=== PATIENT | female | born 1935 | race Caucasian/White ===

== ENCOUNTER → 2016-11-19 | Outpatient (CLI) | payer OTHER ==
[~2016-11-19] MED LIST: AVAPRO300 MG PO; CALTRATE 600 +1 EAC1 PO; DAILY VALUE1 EACH PO; DICLOFENAC POTA50 MG PO; DIGOXIN125 MCG PO; DOCUSATE SODIU100 MG PO; DURAGESIC50 MCG TD; FISH OIL PO; FISH OIL300 MG PO; FLEXERIL10 MG PO; GLUCOSAMINE &1 EAC1 PO; LIPITOR20 MG PO; LOZOL2.5 MG PO; NEURONTIN300 MG PO; PREVACID30 MG PO; RESTASIS 01 DROP/0.4 BOTH EYES; TOPROL XL50 MG PO
== END | disposition home or self-care (01) ==
LOC: NUC 08:45
DX: K31.84 Gastroparesis (principal); R11.10 Vomiting, unspecified
CPT/HCPCS: 78264; A9541

== ENCOUNTER 2017-06-18 15:02 | Inpatient (IN) | payer OTHER ==
[~2017-06-18] VITALS: Ht 147.3 cm; Wt 68.2 kg
[~2017-06-18 15:02] MED LIST changes: +AVAPRO150 MG PO; +FISH OIL 1,0001 EAC7 PO; -FISH OIL PO
[2017-06-18 16:01] LABS: EOSINOPHIL (%) 0.2 % (0-5); HEMATOCRIT 33.2 % (36.0-46.0); IMMATURE GRANULOCYTE (%) 0.8 % (0.0-0.7); IMMATURE GRANULOCYTE COUNT 0.1 K/uL; LYMPHOCYTE COUNT 0.6 K/uL (1.0-2.8); MCH 29.2 PG (29.0-34.0); MCV 85.8 FL (83-99); MEAN PLAT.VOLUME 8.3 uM^3 (9.5-12.4); MONOCYTE (%) 7.8 % (3-12); MONOCYTE COUNT 1.3 K/uL (0-0.8); NEUTROPHIL (%) 87.3 % (45-76); PLATELET COUNT 382 K/uL (156-360); RBC DIS.WIDTH-CV 12.6 % (11.8-14.6); RBC DIS.WIDTH-SD 39.5 % (39-53); RED BLOOD COUNT 3.87 M/uL (3.80-5.20); WHITE BLOOD COUNT 17.2 K/uL (4.1-10.2)
[2017-06-18 16:11] LABS: CHLORIDE 94 mEq/L (99-109); SODIUM 135 mEq/L (136-147)
[2017-06-18 16:13] LABS: GLUCOSE 119 mg/dL (70-99)
[2017-06-18 16:14] LABS: ANION GAP 11 MEQ/L (2-14)
[2017-06-18 16:16] LABS: GFR ESTIMATE (CALCULATED) 42 mL/min/
[2017-06-18 16:17] LABS: UREA NITROGEN (BUN) 27 mg/dL (9-23)
[2017-06-18 16:23] LABS: TROP-I INTERPRETATION NEGATIVE; TROPONIN-I 0.03 ng/mL (0.0-0.30)
[2017-06-18] MEDS ORDERED: NYSTATIN15 GM TP (19:10)
[2017-06-18] MEDS ORDERED: PROTONIX40 MG PO (19:11)
[2017-06-18] MEDS ORDERED: COLACE100 MG PO (19:14)
[2017-06-18 21:47] VITALS: BP 112/53
[2017-06-19] VITALS (7 sets, daily range): BP systolic 97–118; BP diastolic 49–61
[2017-06-19 02:09] LABS: TROP-I INTERPRETATION NEGATIVE; TROPONIN-I 0.01 ng/mL (0.0-0.30)
[2017-06-19 05:50] LABS: HEMATOCRIT 30.5 % (36.0-46.0); MCH 28.4 PG (29.0-34.0); MCHC 33.4 G/DL (30.0-36.0); MEAN PLAT.VOLUME 8.5 uM^3 (9.5-12.4); PLATELET COUNT 404 K/uL (156-360); RBC DIS.WIDTH-CV 12.8 % (11.8-14.6); RBC DIS.WIDTH-SD 39.7 % (39-53); RED BLOOD COUNT 3.59 M/uL (3.80-5.20)
[2017-06-19 06:17] LABS: ANION GAP 10 MEQ/L (2-14); CHLORIDE 95 MEQ/L (99-109); GFR ESTIMATE (CALCULATED) 51 mL/min/; POTASSIUM 3.5 MEQ/L (3.7-5.4); SAMPLE HEMOLYSIS CHECK 0; SAMPLE ICTERIC CHECK 0; SAMPLE LIPEMIA CHECK 0; SODIUM 132 MEQ/L (136-147); UREA NITROGEN (BUN) 30 mg/dL (9-23)
[2017-06-19 06:23] LABS: TROP-I INTERPRETATION NEGATIVE; TROPONIN-I < 0.01 ng/mL (0.0-0.30)
[2017-06-19 06:40] LABS: GLUCOSE 89 mg/dL (70-99)
[2017-06-19 12:44] LABS: ALKALINE PHOSPHATASE 130 IU/L (3-129); ANION GAP 9 MEQ/L (2-14); CHLORIDE 94 MEQ/L (99-109); GFR ESTIMATE (CALCULATED) 51 mL/min/; POTASSIUM 3.5 MEQ/L (3.7-5.4); SAMPLE HEMOLYSIS CHECK 0; SAMPLE ICTERIC CHECK 0; SAMPLE LIPEMIA CHECK 0; SODIUM 132 MEQ/L (136-147); TOTAL BILIRUBIN 0.5 MG/DL (0.0-1.0); UREA NITROGEN (BUN) 27 mg/dL (9-23)
[2017-06-19 12:45] LABS: GLUCOSE 119 mg/dL (70-99)
[2017-06-19 17:51] LABS: BILIRUBIN NEGATIVE; BLOOD NEGATIVE; COLOR YELLOW ((YELLOW)); GLUCOSE (STRIP) NEGATIVE; KETONES NEGATIVE; LEUKOCYTES NEGATIVE; NITRITE NEGATIVE; PROTEIN (STRIP) NEGATIVE; SPECIFIC GRAVITY 1.018 (1.000-1.030)
[2017-06-19 18:13] LABS: ADD MIUA? NO; UCUL ADDED? NO
[2017-06-19 20:23] LABS: EOSINOPHIL (%) 0.8 % (0-5); EOSINOPHIL COUNT 0.1 K/uL (0-0.3); HEMATOCRIT 30.2 % (36.0-46.0); IMMATURE GRANULOCYTE (%) 0.6 % (0.0-0.7); IMMATURE GRANULOCYTE COUNT 0.1 K/uL; INSTRUMENT ABS NEUTROPHIL CT 13.3 K/uL; LYMPHOCYTE COUNT 0.7 K/uL (1.0-2.8); MCH 29.4 PG (29.0-34.0); MCHC 34.1 G/DL (30.0-36.0); MCV 86.3 FL (83-99); MEAN PLAT.VOLUME 8.2 uM^3 (9.5-12.4); MONOCYTE (%) 8.7 % (3-12); MONOCYTE COUNT 1.4 K/uL (0-0.8); NEUTROPHIL (%) 85.3 % (45-76); NEUTROPHIL COUNT 13.3 K/uL (1.8-6.4); PLATELET COUNT 385 K/uL (156-360); RBC DIS.WIDTH-CV 13.2 % (11.8-14.6); RBC DIS.WIDTH-SD 41.4 % (39-53); WHITE BLOOD COUNT 15.6 K/uL (4.1-10.2)
[2017-06-19 20:33] LABS: ANION GAP 8 MEQ/L (2-14); CHLORIDE 96 MEQ/L (99-109); MAGNESIUM 1.5 mg/dl (1.3-2.7); POTASSIUM 3.9 MEQ/L (3.7-5.4); SAMPLE HEMOLYSIS CHECK 0; SAMPLE ICTERIC CHECK 0; SAMPLE LIPEMIA CHECK 0; SODIUM 130 MEQ/L (136-147); TOTAL BILIRUBIN 0.4 MG/DL (0.0-1.0)
[2017-06-19 20:34] LABS: INTER. NORMALIZED RATIO 1.6; PROTHROMBIN TIME 17.7 SEC (10.2-12.9)
[2017-06-19 20:39] LABS: ALKALINE PHOSPHATASE 126 IU/L (3-129); GFR ESTIMATE (CALCULATED) 46 mL/min/; GLUCOSE 128 mg/dL (70-99); UREA NITROGEN (BUN) 28 mg/dL (9-23)
[2017-06-19 20:50] LABS: ERTH.SED.RATE 82 MM/HR (0-30)
[2017-06-20 00:02] VITALS: BP 98/56
[2017-06-20 04:29] VITALS: BP 111/62
[2017-06-20 07:00] VITALS: BP 110/63
[2017-06-20 11:40] VITALS: BP 107/60
[2017-06-20 15:10] VITALS: BP 104/61
[2017-06-20 19:51] VITALS: BP 104/61
[2017-06-21 00:29] VITALS: BP 101/60
[2017-06-21 03:53] VITALS: BP 112/61
[2017-06-21 07:10] VITALS: BP 104/60
[2017-06-21 11:50] VITALS: BP 113/74
[2017-06-21 15:05] VITALS: BP 110/71
[2017-06-21 21:00] VITALS: BP 111/64
[2017-06-22 01:00] VITALS: BP 120/74
[2017-06-22 04:56] VITALS: BP 112/74
[2017-06-22 05:56] LABS: EOSINOPHIL (%) 2.6 % (0-5); EOSINOPHIL COUNT 0.3 K/uL (0-0.3); HEMATOCRIT 30.2 % (36.0-46.0); IMMATURE GRANULOCYTE (%) 0.8 % (0.0-0.7); IMMATURE GRANULOCYTE COUNT 0.1 K/uL; INSTRUMENT ABS NEUTROPHIL CT 9.7 K/uL; MCH 28.7 PG (29.0-34.0); MCHC 33.4 G/DL (30.0-36.0); MCV 85.8 FL (83-99); MEAN PLAT.VOLUME 8.3 uM^3 (9.5-12.4); MONOCYTE (%) 10.7 % (3-12); MONOCYTE COUNT 1.3 K/uL (0-0.8); NEUTROPHIL (%) 77.5 % (45-76); NEUTROPHIL COUNT 9.7 K/uL (1.8-6.4); PLATELET COUNT 478 K/uL (156-360); RBC DIS.WIDTH-CV 13.2 % (11.8-14.6); RBC DIS.WIDTH-SD 41.2 % (39-53); RED BLOOD COUNT 3.52 M/uL (3.80-5.20); WHITE BLOOD COUNT 12.5 K/uL (4.1-10.2)
[2017-06-22 06:24] LABS: ANION GAP 9 MEQ/L (2-14); CHLORIDE 90 MEQ/L (99-109); GFR ESTIMATE (CALCULATED) > 59 mL/min/; GLUCOSE 105 mg/dL (70-99); POTASSIUM 3.7 MEQ/L (3.7-5.4); SAMPLE HEMOLYSIS CHECK 0; SAMPLE ICTERIC CHECK 0; SAMPLE LIPEMIA CHECK 0; SODIUM 131 MEQ/L (136-147); UREA NITROGEN (BUN) 14 mg/dL (9-23)
[2017-06-22 08:15] VITALS: BP 138/67
[2017-06-22 12:06] VITALS: BP 136/88
[2017-06-22 14:11] LABS: TYPE OF FLUID THORACENTESIS
[2017-06-22 14:59] LABS: BODY FLUID EOSINOPHILS 0 % (0-25); BODY FLUID RBC'S 36000 /MM^3 (0-100); BODY FLUID WBC'S 2463 /MM^3 (0-500); MONONUCLEAR WBC'S 11 %; POLYNUCLEAR WBC'S 89 % (0-25)
[2017-06-22 15:04] LABS: BODY FLUID LDH 2710 IU/L
[2017-06-22 15:21] LABS: BODY FLUID PROTEIN < 3.0 G/DL
[2017-06-22 16:36] VITALS: BP 105/73
[2017-06-22 19:31] VITALS: BP 110/56
[2017-06-23] VITALS (7 sets, daily range): BP systolic 118–133; BP diastolic 56–78
[2017-06-24 04:00] VITALS: BP 132/78
[2017-06-24 05:39] LABS: BASOPHIL COUNT 0.1 K/uL (0-0.1); EOSINOPHIL (%) 4.3 % (0-5); EOSINOPHIL COUNT 0.4 K/uL (0-0.3); HEMATOCRIT 28.9 % (36.0-46.0); IMMATURE GRANULOCYTE (%) 1.1 % (0.0-0.7); IMMATURE GRANULOCYTE COUNT 0.1 K/uL; INSTRUMENT ABS NEUTROPHIL CT 6.7 K/uL; LYMPHOCYTE COUNT 0.9 K/uL (1.0-2.8); MCH 28.3 PG (29.0-34.0); MCHC 32.9 G/DL (30.0-36.0); MEAN PLAT.VOLUME 8.3 uM^3 (9.5-12.4); MONOCYTE (%) 13.4 % (3-12); MONOCYTE COUNT 1.3 K/uL (0-0.8); NEUTROPHIL (%) 71.6 % (45-76); NEUTROPHIL COUNT 6.7 K/uL (1.8-6.4); PLATELET COUNT 453 K/uL (156-360); RBC DIS.WIDTH-CV 13.3 % (11.8-14.6); RBC DIS.WIDTH-SD 41.6 % (39-53); RED BLOOD COUNT 3.36 M/uL (3.80-5.20); WHITE BLOOD COUNT 9.3 K/uL (4.1-10.2)
[2017-06-24 06:13] LABS: ANION GAP 8 MEQ/L (2-14); CHLORIDE 91 MEQ/L (99-109); POTASSIUM 3.5 MEQ/L (3.7-5.4); SAMPLE HEMOLYSIS CHECK 0; SAMPLE ICTERIC CHECK 0; SAMPLE LIPEMIA CHECK 0; SODIUM 132 MEQ/L (136-147)
[2017-06-24 06:18] LABS: GFR ESTIMATE (CALCULATED) > 59 mL/min/; GLUCOSE 102 mg/dL (70-99); UREA NITROGEN (BUN) 14 mg/dL (9-23)
[2017-06-24 08:09] VITALS: BP 121/62
[2017-06-24 12:28] VITALS: BP 98/56
[2017-06-24 16:30] VITALS: BP 109/56
[2017-06-24 20:02] VITALS: BP 122/57
[2017-06-24 22:33] LABS: BODY FLUID PH 7.6 (())
[2017-06-24 22:45] VITALS: BP 117/63
[2017-06-25 03:07] VITALS: BP 110/62
[2017-06-25 08:05] VITALS: BP 109/57
[2017-06-25 11:30] VITALS: BP 111/64
[2017-06-25] MEDS ORDERED: TOPROL XL50 MG PO (12:43)
[2017-06-25] MEDS ORDERED: XARELTO15 MG PO (12:46)
[2017-06-25] MEDS ORDERED: LIDODERM 5% P1 PATCH TD (13:22)
[2017-06-25] MEDS ORDERED: ALBUTEROL2.5 MG/3 M IH (13:22)
[2017-06-25] MEDS ORDERED: [UNRECOGNIZED DRUG - SUPPLY] MC (13:23)
[2017-06-25] MEDS ORDERED: DOXYCYCLINE HY100 MG PO (13:24)
[2017-06-25 15:11] VITALS: BP 110/59
== END 2017-06-25 17:26 | DRG 194 ==
LOC: EME 15:02 → EDOF 19:31 → 5WEST 19:31 → ENRESERV 19:36 → CANRESERV 19:36 → ENRESERV 20:22 → 5WEST 21:37 → 4EAST 06-19 19:02 → 5WEST 06-19 19:02 → ENRESERV 06-19 19:05 → 4EAST 06-19 19:50 → ENPENDDIS 06-25 15:30 → 4EAST 06-25 17:26
PROVIDERS: Emergency Medicine; Family Medicine; Hospitalist; Nurse Practitioner Family; Physician Assistant Medical; Radiology Diagnostic Radiology
PROC: 0W993ZZ Drainage of Right Pleural Cavity, Percutaneous Approach (ICD-10-PCS; principal; 2017-06-22)
DX: J18.9 Pneumonia, unspecified organism (principal); J90 Pleural effusion, not elsewhere classified; I48.0 Paroxysmal atrial fibrillation; N17.9 Acute kidney failure, unspecified; E87.1 Hypo-osmolality and hyponatremia; E87.6 Hypokalemia; E78.5 Hyperlipidemia, unspecified; D64.9 Anemia, unspecified; K21.0 Gastro-esophageal reflux disease with esophagitis; I95.9 Hypotension, unspecified; M54.2 Cervicalgia; G89.29 Other chronic pain; M54.16 Radiculopathy, lumbar region; Z85.118 Personal history of other malignant neoplasm of bronchus and lung; Z90.2 Acquired absence of lung [part of]; Z88.2 Allergy status to sulfonamides
CPT/HCPCS: 71010; 71020; 71250; 71275; 76942; 80048; 80053; 81003; 82945; 83605; 83615 91; 83735; 83986 90; 84157; 84484; 85025; 85027; 85610; 85651; 87040; 87070; 87075; 87106; 87205; 88108; 88305; 89051; 92610 GN; 93005; 93306; 94799; 99202; 99281; 99285; G0378; J0456; J0696; J1160; J1650; J1885; J1956; J2405; J3475; J7030; J7050